=== PATIENT | female | born 1965 | race Caucasian/White ===

== ENCOUNTER 2022-02-02 09:25 | Emergency (ER) | payer BC, OTHER ==
[~2022-02-02] VITALS: Ht 162.6 cm; Wt 117.5 kg
[2022-02-02] MEDS ORDERED: DEXAMETHASONE SOD PHOS 10 MG/1 ML VIAL IM ONE (09:45)
[2022-02-02] MEDS ORDERED: KETOROLAC TROMETHAMINE 60 MG/2 ML VIAL IM ONE (09:45)
[2022-02-02] MEDS ORDERED: DIAZEPAM 5 MG TAB PO ONE (09:45)
[2022-02-02] MEDS ORDERED: MEDROL4 M2 PO (10:13)
[2022-02-02] MEDS ORDERED: ULTRAM 50MG50 MG PO (10:13)
[2022-02-02] MEDS ORDERED: CYCLOBENZAPRINE5 MG PO (10:13)
== END 2022-02-02 10:23 | disposition home or self-care (01) ==
LOC: ER 09:31
DX: M54.42 Lumbago with sciatica, left side (principal); N18.6 End stage renal disease; G89.29 Other chronic pain
CPT/HCPCS: 99282; J1100; J1885